=== PATIENT | male | born 1960 | race Caucasian/White ===

== ENCOUNTER 2021-07-06 08:56 | Outpatient (CLI) | payer BC | END 2021-07-06 08:57 | disposition home or self-care (01) | LOC: TBSIIMAG 08:56 | PROVIDERS: ATTEND Family Medicine | DX: M47.26 Other spondylosis with radiculopathy, lumbar region (principal) | CPT/HCPCS: 72148 ==

== ENCOUNTER 2021-12-12 15:42 | Inpatient (IN) | payer BC ==
[2021-12-12] MEDS ORDERED: Morphine 4 MG/ML VIAL ONE (16:30)
[2021-12-12] MEDS ORDERED: Dexamethasone 10 MG/ML VIAL ONE (16:30)
[2021-12-12] MEDS ORDERED: Ketorolac Tromethamine 30 MG/ML VIAL ONE (16:30)
[2021-12-12] MEDS ORDERED: Ondansetron PF 4 MG/2 ML Vial ONE (16:30)
[2021-12-12 16:42] LABS: #Lymphocytes 1.7 thou/uL (1.20-3.40); #Monocytes 0.7 thou/uL (0.11-0.59); #Neutrophils 7.8 thou/uL (1.40-6.50); %Basophils 0.1 % (0.0-1.0); %Eosinophils 0.1 % (0.0-10.0); %Lymphocytes 16.5 % (21.0-51.0); %Monocytes 7.2 % (0.0-10.0); Hemoglobin 14.4 g/dL (14.0-18.0); Mean Corpuscular HGB CONC 32.6 g/dL (32.0-36.0); Mean Corpuscular Hemoglobin 32.2 pg (27.0-31.0); Mean Corpuscular Volume 98.8 fL (78.0-98.0); Mean Platelet Volume 6.8 fL (7.4-10.4); Platelet Count 255 thou/uL (130-400); RBC Distribution Width 12.3 % (11.5-14.5); Red Blood Cell (RBC) Count 4.49 mill/uL (4.70-6.10); White Blood Cell (WBC) Count 10.2 thou/uL (4.8-10.8)
[2021-12-12 16:54] LABS: ALT (SGPT) 21 U/L (8-55); AST (SGOT) 17 U/L (5-34); Albumin 3.9 g/dL (3.4-4.8); Alkaline Phosphatase 51 U/L (40-110); Anion Gap 13 mmol/L (10-20); BUN (Urea Nitrogen) 27 mg/dL (8.4-25.7); Bilirubin, Total 0.6 mg/dL (0.2-1.2); Calc. Creatinine Clearance 0 mL/min (70-130); Calcium 8.9 mg/dL (7.8-10.44); Carbon Dioxide 27 mmol/L (23-31); Chloride 103 mmol/L (98-107); Globulin 2.8 g/dL (2.4-3.5); Glucose 100 mg/dL (80-115); Protein, Total 6.7 g/dL (5.8-8.1); Sodium 139 mmol/L (136-145)
[2021-12-12] MEDS ORDERED: Ondansetron PF 4 MG/2 ML Vial IVP PRN (17:32)
[2021-12-12] MEDS ORDERED: Mag-Al 1200 mg/1200 mg/30 ML UDCUP PO PRN (17:32)
[2021-12-12] MEDS ORDERED: diphenhydrAMINE 50 MG/ML VIAL IVP PRN (17:32)
[2021-12-12] MEDS ORDERED: Morphine 2 MG/ML VIAL SLOW IVP PRN (17:32)
[2021-12-12 17:56] LABS: INR-International Normal Ratio 0.9; PTT 37.3 sec (22.9-36.1); Prothrombin Time 12.6 sec (12.0-14.7)
[2021-12-12 19:03] LABS: SARS-CoV-2 NAA Rapid Test Not Detected (NotDetected)
[2021-12-12 21:17] VITALS: BMI 26.7
[2021-12-12] MEDS: Sodium Chloride 0.9% 1,000 ML IV SCH (21:53)
[2021-12-12] MEDS: traMADol HCl 50 MG TAB PO PRN (23:51)
[2021-12-13] MEDS: Hydrochlorothiazide 25 MG TAB PO SCH (09:46)
[2021-12-13] MEDS: Losartan 25 MG TAB PO SCH (09:48)
[2021-12-13] MEDS: Escitalopram Oxalate 20 mg Tablet PO SCH (09:48)
[2021-12-13] MEDS: Sodium Chloride 0.9% 1,000 ML IV SCH ×2 (09:58→20:45)
[2021-12-13] MEDS: traMADol HCl 50 MG TAB PO PRN ×2 (10:10→18:32)
[2021-12-13] MEDS ORDERED: Scopolamine 1.5 mg/72 hour Patch ONE (10:59)
[2021-12-13] MEDS ORDERED: Clindamycin/D5W 900 MG in Premix Bag 1 BAG IVPB SCH (11:00)
[2021-12-13] MEDS ORDERED: fentaNYL Citrate/PF 100 MCG/2 ML SYRINGE ONE ×2 (12:02→12:49)
[2021-12-13] MEDS ORDERED: SUGAMMADEX SODIUM 200 MG/2 ML VIAL ONE (12:03)
[2021-12-13] MEDS ORDERED: Clindamycin/D5W 900 mg/50 ml Premix Bag ONE (12:05)
[2021-12-13] MEDS ORDERED: Levofloxacin 500 mg/D5W 100 ml Premix Bag ONE (12:05)
[2021-12-13] MEDS ORDERED: Dexamethasone 20 MG/5 ML VIAL ONE (12:18)
[2021-12-13] MEDS ORDERED: Ondansetron PF 4 MG/2 ML Vial ONE (12:18)
[2021-12-13] MEDS ORDERED: PROPOFOL 200 MG/20 ML VIAL ONE (12:18)
[2021-12-13] MEDS ORDERED: Rocuronium Bromide 10 MG/ML (10ML VIAL) ONE (12:18)
[2021-12-13] MEDS ORDERED: Ketorolac Tromethamine 30 MG/ML VIAL ONE (12:18)
[2021-12-13] MEDS ORDERED: diphenhydrAMINE 50 MG/ML VIAL ONE (12:18)
[2021-12-13] MEDS ORDERED: Lidocaine 1% PF 5 ML VIAL ONE (12:18)
[2021-12-13] MEDS ORDERED: Ondansetron HCl/PF 4 MG/2 ML Vial IVP PRN (13:53)
[2021-12-13] MEDS ORDERED: Promethazine HCl 25 MG/ML VIAL IM PRN (13:53)
[2021-12-13] MEDS ORDERED: HYDROmorphone 2 MG/ML VIAL SLOW IVP PRN (13:53)
[2021-12-13] MEDS ORDERED: Promethazine HCl 25 MG/ML VIAL IVPB PRN (13:53)
[2021-12-13] MEDS ORDERED: HYDROmorphone 2 MG/ML VIAL ONE (13:57)
[2021-12-13] MEDS ORDERED: Morphine 2 MG/ML VIAL SLOW IVP PRN (14:01)
[2021-12-13] MEDS ORDERED: Fentanyl 100 MCG/2 ML VIAL ONE (14:30)
[2021-12-13] MEDS ORDERED: HYDROmorphone 0.5 MG/0.5 ML SYRINGE ONE ×2 (14:43→14:54)
[2021-12-13] MEDS: Clindamycin/D5W 600 MG in Premix Bag 1 BAG IVPB SCH (18:22)
[2021-12-13] MEDS ORDERED: Labetalol HCl 100 MG/20 ML VIAL SLOW IVP PRN (20:04)
[2021-12-13] MEDS ORDERED: hydrALAZINE 20 MG/ML VIAL SLOW IVP PRN (20:04)
[2021-12-13] MEDS: tiZANidine HCl 4 MG TAB PO PRN (22:46)
[2021-12-14] MEDS: Clindamycin/D5W 600 MG in Premix Bag 1 BAG IVPB SCH ×5 (00:04→23:28)
[2021-12-14] MEDS: traMADol HCl 50 MG TAB PO PRN ×3 (04:26→20:27)
[2021-12-14] MEDS ORDERED: Milk Of Magnesia 30 ML UDCUP PO PRN (06:23)
[2021-12-14] MEDS: Escitalopram Oxalate 20 mg Tablet PO SCH (08:32)
[2021-12-14] MEDS: Hydrochlorothiazide 25 MG TAB PO SCH (08:32)
[2021-12-14] MEDS: Losartan 25 MG TAB PO SCH (08:32)
[2021-12-14] MEDS: Polyethylene Glycol 3350 17 GM Packet PO PRN (08:33)
[2021-12-14] MEDS: Sodium Chloride 0.9% 1,000 ML IV SCH (11:36)
[2021-12-14] MEDS: HYDROcodone/Acetaminophen 7.5/325 mg Tablet PO PRN (17:21)
[2021-12-14] MEDS: tiZANidine HCl 4 MG TAB PO PRN (20:28)
[2021-12-14 22:21] VITALS: TEMP 97.6
[2021-12-14] MEDS: Acetaminophen/Codeine 30-300mg Tablet PO PRN (23:29)
[2021-12-15] MEDS: Sodium Chloride 0.9% 1,000 ML IV SCH (01:05)
[2021-12-15] MEDS: HYDROcodone/Acetaminophen 7.5/325 mg Tablet PO PRN ×2 (03:39→11:34)
[2021-12-15] MEDS: Clindamycin/D5W 600 MG in Premix Bag 1 BAG IVPB SCH ×2 (06:23→11:34)
[2021-12-15] MEDS: Escitalopram Oxalate 20 mg Tablet PO SCH (08:28)
[2021-12-15] MEDS: Losartan 25 MG TAB PO SCH (08:28)
[2021-12-15] MEDS: Hydrochlorothiazide 25 MG TAB PO SCH (08:28)
[2021-12-15] MEDS: Acetaminophen/Codeine 30-300mg Tablet PO PRN (08:36)
[2021-12-15 09:25] VITALS: BP 128/81
[2021-12-15] MEDS: Polyethylene Glycol 3350 17 GM Packet PO PRN (11:45)
== END 2021-12-15 15:25 | disposition home or self-care (01) | DRG 460 ==
LOC: ERS 15:42 → MSONC 17:32
PROVIDERS: ADMIT Physician Assistant; ATTEND Neurological Surgery
PROC: 0SG1071 Fusion of 2 or more Lumbar Vertebral Joints with Autologous Tissue Substitute, Posterior Approach, Posterior Column, Open Approach (ICD-10-PCS; principal; 2021-12-13)
PROC: 01NB0ZZ Release Lumbar Nerve, Open Approach (ICD-10-PCS; 2021-12-13)
DX: M48.061 Spinal stenosis, lumbar region without neurogenic claudication (principal); Z20.822 Contact with and (suspected) exposure to COVID-19; I10 Essential (primary) hypertension; M41.86 Other forms of scoliosis, lumbar region; Z90.09 Acquired absence of other part of head and neck; Z98.890 Other specified postprocedural states; Z79.899 Other long term (current) drug therapy; Z88.0 Allergy status to penicillin
CPT/HCPCS: 36415; 51798; 72148; 76000; 80053; 85025; 85610; 85730; 93005; 96374; 96375; C1713; C1768; J1100; J1170; J1200; J1885; J1956; J2270; J2405; J2704; J3010; J3370; J3490; J7050; U0002

== ENCOUNTER 2021-12-28 08:34 | Outpatient (CLI) | payer BC | END 2021-12-28 08:35 | disposition home or self-care (01) | LOC: TBSI PT 08:34 | PROVIDERS: ATTEND Neurological Surgery | DX: M48.062 Spinal stenosis, lumbar region with neurogenic claudication (principal); M47.816 Spondylosis without myelopathy or radiculopathy, lumbar region; Z98.890 Other specified postprocedural states | CPT/HCPCS: 72100 ==

== ENCOUNTER 2022-02-09 13:26 | Outpatient (CLI) | payer BC | END 2022-02-09 13:27 | disposition home or self-care (01) | LOC: TBSIIMAG 13:26 | PROVIDERS: ATTEND Physician Assistant | DX: M48.062 Spinal stenosis, lumbar region with neurogenic claudication (principal); Z98.890 Other specified postprocedural states | CPT/HCPCS: 72100 ==